=== PATIENT | male | born 1965 | race Two or more races ===

== ENCOUNTER → 2024-10-18 | Outpatient (CLI) | payer OTHER ==
[~2024-10-18] MED LIST: IOHEXOL 300 MG/ML 100ML BOTTLE IJ ONE
--- NOTE | 2024-10-18 10:03 | DVH ---
CT ABDOMEN AND PELVIS WITH CONTRAST CLINICAL HISTORY: DIFFUSE ABDOMINAL PAIN TECHNIQUE: Multidetector CT of the abdomen was performed from lung bases to pubic symphysis. Imaging was performed with IV contrast. Axial, coronal and sagittal multiplanar reformats were obtained from the axial data set by the technologist. 100 cc of Omnipaque 300 contrast was injected intraven ously. Radiation optimization: All CT scans at this facility use at least one of these dose optimization jemma hniques: automated exposure control mA and/or kV adjustment per patient size (includes targeted exam s where dose is matched to clinical indication) or iterative reconstruction. Radiation Dose Information: CT Dose: CTDI volume is 11.78 mGy. Dose-length product is 1454.05 mGy*cm Comparison: None FINDINGS: The liver demonstrates diffusely decreased attenuation consistent with fatty infiltration. The gallbladder, pancreas, kidneys, adrenal glands, and spleen appear within normal limits. There is no evidence of abdominal lymphadenopathy. There is no free fluid or free air. The small and large bowel loops demonstrate normal caliber. There are scattered diverticula in the c olon without evidence of acute diverticulitis. The abdominal aorta and IVC appear within normal limits. The bladder appears unremarkable. There is mild prostatomegaly. There is no evidence of a pelvic mas s or lymphadenopathy. There is no free fluid collection. There are bilateral scrotal hydroceles, left larger than right. Lung bases are clear. There is no acute osseous abnormality. IMPRESSION: 1. There is no acute process in the abdomen and pelvis. 2. Hepatic steatosis. 3. Mild prostatomegaly. 4. Bilateral scrotal hydroceles. HS:Y
[2024-10-18 10:53] LABS: Anion Gap 8 (5-15); Carbon Dioxide 28 mmol/L (20-31); Chloride 102 mmol/L (98-107); Sodium 138 mmol/L (136-145)
[2024-10-18 10:54] LABS: Calcium 10.2 mg/dL (8.7-10.4)
[2024-10-18 10:59] LABS: BUN/Creatinine Ratio 16.3 (10.0-20.0); Blood Urea Nitrogen 14 mg/dL (9-23); Glucose 85 mg/dL (74-106)
[2024-10-18 11:02] LABS: Potassium 3.1 mmol/L (3.5-5.1)
== END | disposition home or self-care (01) ==
LOC: EEVIPCON 08:05 → XYW 08:05
DX: K76.0 Fatty (change of) liver, not elsewhere classified (principal); N40.0 Benign prostatic hyperplasia without lower urinary tract symptoms; N43.3 Hydrocele, unspecified; K57.30 Diverticulosis of large intestine without perforation or abscess without bleeding; R10.9 Unspecified abdominal pain
CPT/HCPCS: 36415; 74178; 80048; Q9967